=== PATIENT | female | born 1995 ===

== ENCOUNTER → 2025-01-01 | Outpatient (CLI) | payer OTHER, MEDICAID, SELFPAY ==
[2025-01-01 10:33] VITALS: PULSE 76; RESP 20; O2SAT 97
[2025-01-01 10:37] VITALS: PULSE 76
[2025-01-01] MEDS: ALBUTEROL RT 2.5 MG/0.5 ML NEBU INH (10:37)
[2025-01-01] MEDS: SODIUM CHLORIDE RT SOL 0.9% 3 ML NEBU INH (10:37)
== END | disposition home or self-care (01) ==
PROVIDERS: PCP Emergency Medicine; Referring Provider Emergency Medicine; Visit Provider Emergency Medicine
DX: J96.01 Acute respiratory failure with hypoxia (principal)
CPT/HCPCS: 94013; 94060; 94726; 94729